=== PATIENT | male | born 1980 | race Two or more races ===

== ENCOUNTER 2019-01-31 09:40 | Emergency (ER) | payer MEDICAID, OTHER ==
[~2019-01-31] VITALS: Ht 175.3 cm; Wt 72.0 kg
[2019-01-31] MEDS ORDERED: IBUPROFEN 600MG TABLET PO ONE (10:30)
[2019-01-31 10:32] VITALS: BP 136/86
== END 2019-01-31 10:58 | disposition home or self-care (01) ==
LOC: ER 09:40
DX: J06.9 Acute upper respiratory infection, unspecified (principal); J02.9 Acute pharyngitis, unspecified; I10 Essential (primary) hypertension; R51 Headache; K64.4 Residual hemorrhoidal skin tags
CPT/HCPCS: 99283

== ENCOUNTER 2019-02-03 17:43 | Emergency (ER) | payer OTHER ==
[~2019-02-03] VITALS: Ht 172.7 cm; Wt 72.0 kg
[2019-02-03 18:18] VITALS: BP 119/87
== END 2019-02-03 20:09 | disposition left against medical advice (07) ==
LOC: ER 17:43
DX: J39.8 Other specified diseases of upper respiratory tract (principal); B97.89 Other viral agents as the cause of diseases classified elsewhere; R51 Headache; R09.89 Other specified symptoms and signs involving the circulatory and respiratory systems
CPT/HCPCS: 71045; 99283